=== PATIENT | male | born 1980 | race Caucasian/White ===

== ENCOUNTER 2023-12-01 21:36 | Emergency (ER) | payer SELFPAY ==
[~2023-12-01] VITALS: Ht 180.3 cm; Wt 122.7 kg
[~2023-12-01 21:36] MED LIST: LOPRESSOR 550 MG/TAB PO; PRILOSEC 20MG20 MG PO
[2023-12-01 21:47] VITALS: TEMP 98.3
[2023-12-02 00:18] VITALS: BP 148/74; PULSE 86
[2023-12-02] MEDS ORDERED: FLEXERIL 1010 MG/TAB PO (15:03)
== END 2023-12-02 00:18 | disposition home or self-care (01) ==
LOC: COL.ER 21:36
DX: R07.81 Pleurodynia (principal)
CPT/HCPCS: J1170

== ENCOUNTER 2024-07-11 10:34 | Emergency (ER) | payer BC ==
[~2024-07-11] VITALS: Ht 180.3 cm; Wt 97.7 kg
[~2024-07-11 10:34] MED LIST changes: +FLEXERIL 1010 MG/TAB PO
[2024-07-11 10:39] VITALS: TEMP 97.7
[2024-07-11] MEDS ORDERED: diphenhydrAMINE 50 MG/ML 1 ML VIAL IV ONE (11:00)
[2024-07-11] MEDS ORDERED: Tranexamic Acid 1,000 MG in NS 100 ML IV ONE (11:00)
[2024-07-11] MEDS ORDERED: methylPREDNISolone Sod Succ 125 MG/2 ML VIAL IV ONE (11:00)
[2024-07-11] MEDS ORDERED: NS 1,000 ML IV ONE (11:00)
[2024-07-11 11:51] LABS: BASO % 0.1 % (0.0-2.0); EOS # 0.1 K/mm3 (0.0-0.7); EOS % 0.8 % (0.0-4.0); GRAN % 81.8 % (42.2-75.2); HEMATOCRIT 50.6 % (42.0-52.0); HEMOGLOBIN 17.4 g/dl (13.5-18.0); LYMPH # 1.7 K/mm3 (1.2-3.4); LYMPH % 12.7 % (20.0-51.0); MEAN CELL VOLUME 95 fl (80.0-100.0); MEAN CORPUSCULAR HEMOGLOBIN 33 pg (27-31); MEAN CORPUSCULAR HGB CONC 34 g/dl (33.0-37.0); MEAN PLATELET VOLUME 12.2 fl (7.4-10.4); MONO # 0.6 K/mm3 (0.1-0.6); MONO % 4.1 % (1.7-9.3); PLATELET COUNT 247 K/mm3 (130-400); RED BLOOD COUNT 5.33 M/mm3 (4.20-5.60)
[2024-07-11 12:07] LABS: CALCIUM 9.3 mg/dL (8.4-10.2); CREATININE, serum 1.1 mg/dL (0.72-1.25); POTASSIUM 3.1 mEq/L (3.5-4.5)
[2024-07-11] MEDS ORDERED: PREDNISONE20 MG PO (12:29)
[2024-07-11 12:45] VITALS: BP 103/74; PULSE 79
== END 2024-07-11 12:45 | disposition home or self-care (01) ==
LOC: COL.ER 10:34
PROVIDERS: Physician Assistant
DX: T78.40XA Allergy, unspecified, initial encounter (principal); I10 Essential (primary) hypertension; Z79.899 Other long term (current) drug therapy
CPT/HCPCS: J1200; J2919; J7030